=== PATIENT | female | born 1955 | race Two or more races ===

== ENCOUNTER 2019-03-14 16:38 | Emergency (ER) | payer OTHER ==
[~2019-03-14] VITALS: Ht 154.9 cm; Wt 47.2 kg
[~2019-03-14 16:38] MED LIST: KETO10TA2 PO; ORPH100T PO; PEPCID40 MG PO; ZOFRAN4 MG PO
[2019-03-14] MEDS ORDERED: ACETAMINOPHEN500 M1 (16:52)
[2019-03-14] MEDS ORDERED: GLIMEPIRIDE2 MG (16:52)
[2019-03-14] MEDS ORDERED: ZESTRIL20 MG (16:53)
[2019-03-14] MEDS ORDERED: HYDROCHLOROTHIAZIDE (16:54)
[2019-03-14] MEDS ORDERED: METOPROLOL 25 MG (16:55)
[2019-03-14] MEDS ORDERED: ATORVASTATIN CA20 MG (16:56)
[2019-03-14] MEDS ORDERED: NORFLEX 100 MG (16:57)
[2019-03-14] MEDS ORDERED: BACLOFEN10 MG (16:59)
[2019-03-14] MEDS ORDERED: CIPRO500 MG (16:59)
[2019-03-14] MEDS ORDERED: PEPCID AC20 MG (17:00)
== END 2019-03-14 20:43 | disposition home or self-care (01) ==
LOC: ER 16:38
DX: M62.838 Other muscle spasm (principal); M54.5 Low back pain

== ENCOUNTER 2022-07-14 22:22 | Emergency (ER) | payer OTHER ==
[~2022-07-14] VITALS: Ht 157.5 cm; Wt 48.1 kg
[~2022-07-14 22:22] MED LIST changes: +ACETAMINOPHEN500 M1; +ATORVASTATIN CA20 MG; +BACLOFEN10 MG; +CIPRO500 MG; +GLIMEPIRIDE2 MG; +HYDROCHLOROTHIAZIDE; +METOPROLOL 25 MG; +NORFLEX 100 MG; +PEPCID AC20 MG; +ZESTRIL20 MG
== END 2022-07-15 00:57 ==
LOC: ER 22:22
DX: I10 Essential (primary) hypertension (principal); Z88.8 Allergy status to other drugs, medicaments and biological substances; E11.9 Type 2 diabetes mellitus without complications; Z79.84 Long term (current) use of oral hypoglycemic drugs

== ENCOUNTER 2022-07-18 07:28 | Emergency (ER) | payer OTHER ==
[~2022-07-18] VITALS: Ht 154.9 cm; Wt 48.1 kg
== END 2022-07-18 09:51 | disposition home or self-care (01) ==
LOC: ER 07:28
DX: K59.00 Constipation, unspecified (principal); Z88.6 Allergy status to analgesic agent; E78.00 Pure hypercholesterolemia, unspecified; E11.9 Type 2 diabetes mellitus without complications; Z79.84 Long term (current) use of oral hypoglycemic drugs; I10 Essential (primary) hypertension

== ENCOUNTER 2023-07-19 11:06 | Emergency (ER) | payer OTHER ==
[~2023-07-19] VITALS: Ht 162.6 cm; Wt 54.4 kg
[2023-07-19] MEDS ORDERED: MECLIZINE HCL 25 MG TABLET PO STA (12:28)
[2023-07-19] MEDS ORDERED: KETOROLAC TROMETHAMINE 30 MG VIAL IM STA (12:29)
== END 2023-07-19 12:44 | disposition home or self-care (01) ==
LOC: ER 11:07
DX: M54.9 Dorsalgia, unspecified (principal); R42 Dizziness and giddiness; Z88.2 Allergy status to sulfonamides; Z88.6 Allergy status to analgesic agent; Z88.8 Allergy status to other drugs, medicaments and biological substances
CPT/HCPCS: 96372; 99282; J1885

== ENCOUNTER 2024-07-20 00:02 | Emergency (ER) | payer OTHER ==
[~2024-07-20] VITALS: Ht 154.9 cm; Wt 45.4 kg
[2024-07-20] MEDS ORDERED: KAPSPARGO SPRIN25 MG PO (00:46)
[2024-07-20] MEDS ORDERED: NORVASC5 MG PO (00:46)
[2024-07-20] MEDS ORDERED: LIPITOR40 M1 PO (00:46)
[2024-07-20] MEDS ORDERED: INDAPAMIDE1.25 MG PO (00:47)
[2024-07-20] MEDS ORDERED: METOPROLOL TARTRATE 25 MG TABLET PO STA (03:17)
[2024-07-20] MEDS ORDERED: hydrOXYzine PAMOATE 50 MG CAPSULE PO STA (03:18)
== END 2024-07-20 06:16 | disposition home or self-care (01) ==
LOC: ER 00:02
DX: R00.2 Palpitations (principal); I10 Essential (primary) hypertension; Z88.0 Allergy status to penicillin; Z88.8 Allergy status to other drugs, medicaments and biological substances

== ENCOUNTER → 2025-03-28 | Emergency (ER) | payer OTHER ==
[~2025-03-28] VITALS: Ht 152.4 cm; Wt 59.0 kg
[~2025-03-28] MED LIST changes: +0.9 % SODIUM CHLORIDE 1,000 ML IV ONE; +ASPIRIN 325 MG TABLET PO SCH; +DILTIAZEM HCL 125MG/25ML VIAL IV SCH; +DILTIAZEM HCL 25 MG/5 ML VIAL IV ONE; +DILTIAZEM HCL 50 MG/10 ML VIAL IV SCH; +FAMOTIDINE/PF 20 MG/2 ML VIAL ONE; +FAMOtidine 10 MG/ML (4ML VIAL) IV ONE; +INDAPAMIDE1.25 MG PO; +KAPSPARGO SPRIN25 MG PO; +LIPITOR40 M1 PO; +METOPROLOL SUCCINATE 25 MG TAB.SR.24H PO ONE; +NORVASC5 MG PO
[2025-03-28 10:15] LABS: BASO % 0.8 % (0.1-1.2); EOS # 0.33 (0.04-0.54); EOS % 5.1 % (0.7-7.0); LYMPH # 1.38 (1.18-3.74); LYMPH % 21.2 % (19.3-53.1); MEAN PLATELET VOLUME 8.60 fl (9.4-12.4); MONO # 0.45 (0.24-0.82); MONO % 6.9 % (4.7-12.5); NEUT # 4.29 (1.56-6.13); NEUT % 65.8 % (34.0-71.1); RED CELL DISTRIBUTION WIDTH 13.2 % (11.6-14.4)
[2025-03-28 10:31] LABS: URINE APPEARANCE Clear; URINE BILIRRUBIN Negative (NEGATIVE); URINE BLOOD Moderate; URINE COLOR Yellow; URINE GLUCOSE Negative (NEGATIVE); URINE KETONE Negative (NEGATIVE); URINE LEUKOCYTE Trace; URINE NITRATE Negative; URINE PROTEIN Negative (NEGATIVE); URINE UROBILINOGEN 0.2 E.U./dl
[2025-03-28 10:36] LABS: URINE BACTERIA 31.9 uL (0.0-1933); URINE EPITHELIAL CELLS 9.3 uL (0.0-38.8); URINE RBC 72.0 uL (0.0-20.8); URINE WBC 19.4 uL (0.0-23.2)
[2025-03-28 10:46] LABS: INR 1.01
[2025-03-28 10:59] LABS: URINE CAST 0.14 uL (0.0-1.40)
[2025-03-28 11:19] LABS: ALT/SGPT 20.0 U/L (12-78); AST/SGOT 20.0 U/L (15-37); BILIRUBIN TOTAL 0.37 mg/dL (0.3-1.2); BUN CREA RATIO 22.0 (7.0-25.0); CREATININE SERUM 0.79 mg/dL (0.55-1.02); GFR 72.16; GLOBULINA 3.5 G/DL (2.4-3.5); GLUCOSE FASTING 99.0 mg/dL (65-100); OSMOLALITY SERUM 274.0 MOSM/KG (275-295); TSH 0.715 uIU/mL (0.358-3.74)
== END | disposition home or self-care (01) ==
LOC: ER 08:28
PROVIDERS: General Practice
DX: R00.2 Palpitations (principal); R00.0 Tachycardia, unspecified; M54.59 Other low back pain; I10 Essential (primary) hypertension; E11.9 Type 2 diabetes mellitus without complications; Z88.0 Allergy status to penicillin; Z88.6 Allergy status to analgesic agent; Z88.8 Allergy status to other drugs, medicaments and biological substances
CPT/HCPCS: 36415; 71045; 93005; 96365; 96366; 99283; J3490; J7030